=== PATIENT | male | born 1985 | race African-American/Black ===

== ENCOUNTER 2024-01-25 09:55 | Observation (INO) | payer OTHER ==
[2024-01-25] MEDS ORDERED: Aspirin Chewable 81 MG TAB ONE (10:21)
[2024-01-25 10:36] LABS: #Basophils 0.04 10x3/uL (0.0-0.2); #Eosinphils 0.01 10x3/uL (0.0-0.5); #Neutrophils 13.67 10x3/uL (1.5-8.4); %Basophils 0.3 % (0.0-2.0); %Eosinophils 0.1 % (0.0-6.0); %Lymphocytes 3.5 % (18.0-47.0); %Monocytes 5.9 % (0.0-10.0); %Neutrophils 89.2 % (40.0-75.0); Hematocrit 42.7 % (38.8-50.0); Hemoglobin 15.4 g/dL (13.5-17.5); Mean Corpuscular HGB CONC 36.1 g/dL (32.0-36.0); Mean Corpuscular Hemoglobin 33.1 pg (27.0-33.0); Mean Corpuscular Volume 91.8 fL (81.2-95.1); Mean Platelet Volume 9.5 fL (7.4-10.4); Platelet Count 327 10x3/uL (150-450); RBC Distribution Width 11.1 % (11.5-14.5); Red Blood Cell (RBC) Count 4.65 10x6/uL (4.32-5.72); White Blood Cell (WBC) Count 15.3 10x3/uL (3.5-10.5)
[2024-01-25 10:53] LABS: ALT (SGPT) 40 U/L (8-55); AST (SGOT) 40 U/L (5-34); Albumin 4.6 g/dL (3.5-5.0); Alkaline Phosphatase 59 U/L (40-110); Anion Gap 17 mmol/L (10-20); BUN (Urea Nitrogen) 16 mg/dL (8.9-20.6); Calc. Creatinine Clearance 0 mL/min (70-130); Carbon Dioxide 24 mmol/L (22-29); Chloride 103 mmol/L (98-107); Estimated GFR 101; Globulin 4.2 g/dL (2.4-3.5); Glucose 110 mg/dL (70-105); Lipase 23 U/L (8-78); Protein, Total 8.8 g/dL (6.0-8.3); Sodium 138 mmol/L (136-145)
[2024-01-25 10:54] LABS: Troponin I Less than 0.010 ng/mL (< 0.028)
[2024-01-25 10:59] LABS: Critical Call Chemistry ERSKW.@1055; Potassium 6.2 mmol/L (3.5-5.1)
[2024-01-25] MEDS ORDERED: Calcium Gluc 4.6 MEQ/10 ML (100 MG/ML) ONE (11:14)
[2024-01-25] MEDS ORDERED: Dextrose 50% Abboject 50 ML SYRINGE ONE (11:14)
[2024-01-25] MEDS ORDERED: Insulin Regular 300 UNITS/3 ML VIAL ONE (11:14)
[2024-01-25 13:58] LABS: Troponin I Less than 0.010 ng/mL (< 0.028)
[2024-01-25] MEDS ORDERED: Ondansetron PF 4 MG/2 ML Vial IVP PRN (15:05)
[2024-01-25] MEDS ORDERED: Calcium Carbonate 500 MG ChewTAB PO PRN (15:05)
[2024-01-25 15:14] VITALS: BMI 22.8
[2024-01-25 15:46] LABS: Anion Gap 14 mmol/L (10-20); BUN (Urea Nitrogen) 15 mg/dL (8.9-20.6); Calc. Creatinine Clearance 116 mL/min (70-130); Calcium 9.7 mg/dL (7.8-10.44); Carbon Dioxide 25 mmol/L (22-29); Chloride 104 mmol/L (98-107); Estimated GFR 115; Glucose 88 mg/dL (70-105); Magnesium 1.8 mg/dL (1.6-2.6); Sodium 138 mmol/L (136-145)
[2024-01-25] MEDS: Ondansetron ODT 4 MG TAB PO PRN (15:49)
[2024-01-25] MEDS: Sodium Chloride 0.9% 1,000 ML IV SCH (15:49)
[2024-01-25 15:52] LABS: Troponin I Less than 0.010 ng/mL (< 0.028)
[2024-01-25] MEDS: Acetaminophen 325 MG TAB PO PRN (17:24)
[2024-01-25] MEDS: Famotidine 20 MG TAB PO SCH (18:05)
[2024-01-26 04:37] LABS: #Basophils 0.02 10x3/uL (0.0-0.2); #Eosinphils 0.06 10x3/uL (0.0-0.5); #Neutrophils 4.86 10x3/uL (1.5-8.4); %Basophils 0.3 % (0.0-2.0); %Lymphocytes 11.6 % (18.0-47.0); %Neutrophils 81.6 % (40.0-75.0); Hematocrit 36.1 % (38.8-50.0); Hemoglobin 12.6 g/dL (13.5-17.5); Mean Corpuscular HGB CONC 34.9 g/dL (32.0-36.0); Mean Corpuscular Hemoglobin 32.4 pg (27.0-33.0); Mean Corpuscular Volume 92.8 fL (81.2-95.1); Mean Platelet Volume 9.3 fL (7.4-10.4); Platelet Count 277 10x3/uL (150-450); RBC Distribution Width 11.4 % (11.5-14.5); Red Blood Cell (RBC) Count 3.89 10x6/uL (4.32-5.72)
[2024-01-26 04:44] LABS: ALT (SGPT) 37 U/L (8-55); AST (SGOT) 38 U/L (5-34); Albumin 3.3 g/dL (3.5-5.0); Alkaline Phosphatase 44 U/L (40-110); Anion Gap 10 mmol/L (10-20); BUN (Urea Nitrogen) 13 mg/dL (8.9-20.6); Calc. Creatinine Clearance 122 mL/min (70-130); Calcium 8.6 mg/dL (7.8-10.44); Carbon Dioxide 24 mmol/L (22-29); Chloride 106 mmol/L (98-107); Estimated GFR 117; Globulin 3.4 g/dL (2.4-3.5); Glucose 100 mg/dL (70-105); Potassium 4.2 mmol/L (3.5-5.1); Protein, Total 6.7 g/dL (6.0-8.3); Sodium 136 mmol/L (136-145)
[2024-01-26] MEDS: Ketorolac Tromethamine 30 MG (1 mL) VIAL IVP SCH (05:22)
[2024-01-26] MEDS: Famotidine 20 MG TAB PO SCH (08:34)
[2024-01-26] MEDS: Enoxaparin 40 MG (0.4 mL) SYRINGE SC SCH (08:35)
[2024-01-26 16:53] VITALS: BP 125/82; TEMP 98.4
== END 2024-01-26 16:30 | disposition home or self-care (01) ==
LOC: EEVIPCON 09:55 → CSHERS 09:55 → CSHTELE 14:09
PROVIDERS: ADMIT Family Medicine; ATTEND Family Medicine
DX: R11.2 Nausea with vomiting, unspecified (principal); R07.89 Other chest pain; R10.9 Unspecified abdominal pain; E87.5 Hyperkalemia; Z79.899 Other long term (current) drug therapy
CPT/HCPCS: 36415; 36416; 71045; 76705; 80053; 83690; 83735; 84484; 85025; 93005; 94760; 96365; 96372; 96375; G0378; J0612; J1650; J1815; J1885; J7050; J7999; Q0162